=== PATIENT | male | born 1980 | race African-American/Black ===

== ENCOUNTER → 2022-06-17 | Outpatient (CLI) | payer OTHER | LOC: COL.RAD 08:48 | DX: M24.852 Other specific joint derangements of left hip, not elsewhere classified (principal); M84.852 Other disorders of continuity of bone, left pelvic region and thigh | CPT/HCPCS: A9575; Q9967 ==

== ENCOUNTER → 2022-06-25 | Outpatient (CLI) | payer OTHER | LOC: COL.RAD 08:08 | DX: M25.552 Pain in left hip (principal) | CPT/HCPCS: J3301 ==

== ENCOUNTER → 2022-12-25 | Outpatient (CLI) | payer OTHER | LOC: COL.RAD 12:15 | DX: M25.552 Pain in left hip (principal) | CPT/HCPCS: J3301; Q9967 ==